=== PATIENT | male | born 1975 | race African-American/Black ===

== ENCOUNTER 2020-12-20 18:32 | Emergency (ER) | payer OTHER ==
[~2020-12-20 18:32] MED LIST: ASPIR 8181 MG PO
[2020-12-20 20:30] LABS: HEMOGLOBIN 15.3 gm/dl (14.0-17.5); RED BLOOD COUNT 5.37 M/UL (4.20-5.50); WHITE BLOOD COUNT 12.9 K/UL (4.5-11.0)
[2020-12-20 20:53] LABS: BUN/CREATININE RATIO 8 (0-10)
[2020-12-20] MEDS ORDERED: PROAIR HFA8.5 GM INH (22:15)
[2020-12-20] MEDS ORDERED: LASIX40 MG PO (22:15)
[2020-12-20] MEDS ORDERED: K-DUR TAB 20 M20 MEQ PO (22:15)
== END 2020-12-20 21:50 | disposition home or self-care (01) ==
LOC: ER1 18:32
PROVIDERS: Physician Assistant Medical
DX: I11.0 Hypertensive heart disease with heart failure (principal); I50.9 Heart failure, unspecified; J02.9 Acute pharyngitis, unspecified; R06.02 Shortness of breath; E11.9 Type 2 diabetes mellitus without complications; Z86.73 Personal history of transient ischemic attack (TIA), and cerebral infarction without residual deficits; Z88.8 Allergy status to other drugs, medicaments and biological substances; Z79.01 Long term (current) use of anticoagulants; Z20.822 Contact with and (suspected) exposure to COVID-19
CPT/HCPCS: 0240U; 71045; 71046; 80053; 82550; 82553; 82962; 83605; 83874; 83880; 84484; 85025; 87040; 87081; 87880; 93005; 94664; 94760; 96374; 99285; J1940

== ENCOUNTER → 2021-03-12 | Outpatient (CLI) | payer OTHER ==
[~2021-03-12] MED LIST changes: +K-DUR TAB 20 M20 MEQ PO; +LASIX40 MG PO; +PROAIR HFA8.5 GM INH
== END ==
LOC: NM 02-13 15:00 → ECHO 09:00 → NM 03-13 09:00
DX: I20.9 Angina pectoris, unspecified (principal); I50.22 Chronic systolic (congestive) heart failure
CPT/HCPCS: ECHO; 78452; 93017; 93306; A9502; J2785